=== PATIENT | female | born 1980 | race Caucasian/White ===

== ENCOUNTER 2018-07-06 13:11 | Emergency (ER) | payer OTHER ==
[2018-07-06 13:22] VITALS: BMI 32.7
[2018-07-06] MEDS ORDERED: ONDANSETRON *ODT* 4 MG TABLET SL ONE (14:05)
[2018-07-06] MEDS ORDERED: ONDANSETRON *ODT* 4 MG TABLET ONE (14:24)
--- NOTE | 2018-07-06 14:26 | PDOC ---
History of Present Illness - General Chief Complaint: Nausea/Vomiting Stated Complaint: NAUSEA Time Seen by Provider: 07/06/18 14:05 History Source: Patient Exam Limitations: No Limitations - History of Present Illness Travel History: No Initial Comments: 07/06/18 15:36 38 yr female history of hypothyroid c/o nausea vomiting for 3 days no abd pain no fever no diarrhea. Pt denies foreign travel or sick contacts. LMP 1 week ago , no chest pain no shortness of breath. 07/06/18 18:20 Past History - Past Medical History Allergies/Adverse Reactions: Allergies Allergy/AdvReac Type Severity Reaction Status Date / Time No Known Allergies Allergy Verified 07/06/18 13:19 Home Medications: Ambulatory Orders Albuterol 0.083% Nebulizer Alice [Ventolin 0.083% Nebulizer Soln -] 1 neb NEB Q4H PRN #1 vial 07/30/16 Albuterol Sulfate [Proair Respiclick] 90 mcg IH BID 07/30/16 Levothyroxine [Synthroid -] 112 mcg PO DAILY 07/30/16 Montelukast Na [Singulair -] 10 mg PO HS 07/30/16 Nitrofurantoin Monohyd/M-Cryst [Macrobid -] 100 mg PO BID #14 capsule 07/06/18 Ondansetron [Zofran Odt -] 4 mg SL TID PRN #21 od.tablet 07/06/18 Asthma: Yes COPD: No Thyroid Disease: Yes (HYPO) - Immunization History Immunization Up to Date: Yes - Suicide/Smoking/Psychosocial Hx Smoking History: Never smoked Number of Cigarettes Smoked Daily: 0 Hx Alcohol Use: No Drug/Substance Use Hx: No Abd/GI Specific PMHX - Complaint Specific PMHX Colitis: No Diverticulitis: No Gall Bladder Disease: No GERD: No Hepatitis: No Irritable Bowel Synd (IBS): No Pancreatitis: No GI Ulcer Disease: No Review of Systems - Review of Systems Able to Perform ROS?: Yes Is the patient limited Tajik proficient: No Constitutional: No: Symptoms Reported HEENTM: No: Symptoms Reported Respiratory: No: Symptoms reported Cardiac (ROS): No: Symptoms Reported ABD/GI: Yes: Symptoms Reported *Physical Exam - Vital Signs Last Vital Signs Temp Pulse Resp BP Pulse Ox 98.2 F 105 H 18 114/64 97 07/06/18 13:19 12/07/18 13:19 07/06/18 13:19 07/06/18 13:19 07/06/18 13:19 - Physical Exam General Appearance: Yes: Nourished, Appropriately Dressed HEENT: positive: EOMI, BENNETT, TMs Normal, Pharynx Normal Neck: positive: Supple. negative: Tender Respiratory/Chest: positive: Lungs Clear, Normal Breath Sounds. negative: Chest Tender Cardiovascular: positive: Regular Rhythm, Regular Rate, Tachycardia Gastrointestinal/Abdominal: positive: Normal Bowel Sounds, Soft. negative: Tender Musculoskeletal: positive: Normal Inspection Extremity: positive: Normal Capillary Refill, Normal Inspection, Normal Range of Motion Integumentary: positive: Normal Color, Dry, Warm, Pale Neurologic: positive: millwright helper II-XII NML intact, Fully Oriented, Alert, Normal Mood/ Affect, Normal Response, Motor Strength 5/5 Moderate Sedation - Procedure Monitoring Vital Signs: Procedure Monitoring Vital Signs Temperature 98.2 F 07/06/18 13:19 Pulse Rate 105 H 07/06/18 13:19 Respiratory Rate 18 07/06/18 13:19 Blood Pressure 114/64 07/06/18 13:19 O2 Sat by Pulse Oximetry (%) 97 07/06/18 13:19 ED Treatment Course - LABORATORY CBC & Chemistry Diagram: 07/06/18 15:40 07/06/18 17:04 Medical Decision Making - Medical Decision Making 07/06/18 15:39 cc: nausea and vomiting r/o r/o gastitis viral gastroenteritis labs, fluids re-assess 07/06/18 16:47 pt is feeling better after IVF, has no vomiting in ER will give ice chips for po challenge 07/06/18 17:48 *DC/Admit/Observation/Transfer Diagnosis at time of Disposition: Viral gastritis UTI (urinary tract infection) Qualifiers: Urinary tract infection type: acute cystitis Hematuria presence: without hematuria Qualified Code(s): N30.00 - Acute cystitis without hematuria - Discharge Dispostion Disposition: HOME Condition at time of disposition: Improved - Prescriptions Prescriptions: Nitrofurantoin Monohyd/M-Cryst [Macrobid -] 100 mg PO BID #14 capsule Ondansetron [Zofran Odt -] 4 mg SL TID PRN #21 od.tablet PRN Reason: Nausea And/Or Vomiting - Referrals Referrals: Calin Maradiaga MD [Staff Physician] - Dylon Rubi MD [Primary Care Provider] - - Patient Instructions Printed Discharge Instructions: DI for Urinary Tract Infection (UTI), DI for Nausea -- Adult, DI for Vomiting -- Adult Additional Instructions: take zofran as directed for nausea or vomiting sips of clear fluids , ice pops, jello, broth for the next 24hrs then slowly advance to dry crackers, dry toast plain white rice, noodle soup rest at home follow with on MONDAY call in the morning to make appointment return to ER for any worsening symptoms Macrobid for your uti - Post Discharge Activity
[2018-07-06] MEDS ORDERED: SODIUM CHLORIDE 1,000 ML IV STA ×2 (15:19→16:15)
[2018-07-06] MEDS ORDERED: METOCLOPRAMIDE HCL INJECTION 10 MG/2 ML VIAL IVPUSH ONE (15:38)
[2018-07-06 16:10] LABS: BASO % 0.6 % (0-2.0); EOS % 0.4 % (0-4.5); HEMATOCRIT 42.5 % (32.4-45.2); HEMOGLOBIN 14.7 GM/dL (10.7-15.3); LYMPH % 14.1 % (8-40); MCHC 34.5 g/dl (32.0-36.0); MEAN CELL VOLUME 86.8 fl (80-96); MEAN PLT VOLUME 9.6 fl (7.5-11.1); MONO % 5.4 % (3.8-10.2); NEUT % 79.5 % (42.8-82.8); PLATELET COUNT 348 K/MM3 (134-434); RDW 13.3 % (11.6-15.6); WHITE BLOOD COUNT 17.2 K/mm3 (4.0-10.0)
[2018-07-06] MEDS ORDERED: METOCLOPRAMIDE HCL INJECTION 10 MG/2 ML VIAL ONE (16:20)
[2018-07-06 18:20] LABS: ALBUMIN 2.6 g/dl (3.4-5.0); ALK PHOS 85 U/L (45-117); AMYLASE 33 U/L (25-115); ANION GAP 9 MMOL/L (8-16); BILIRUBIN,TOTAL 0.4 mg/dL (0.2-1); BLOOD UREA NITROGEN 12 mg/dL (7-18); CALCIUM 7.3 mg/dL (8.5-10.1); CHLORIDE 109 mmol/L (98-107); CO2 23 mmol/L (21-32); CREATININE 0.7 mg/dL (0.55-1.3); GLUCOSE,RANDOM 86 mg/dL (74-106); LIPASE 84 U/L (73-393); POTASSIUM 4.4 mmol/L (3.5-5.1); SGOT/AST 7 U/L (15-37); SGPT/ALT 11 U/L (13-61); SODIUM 142 mmol/L (136-145); TOT PROT 6.1 g/dl (6.4-8.2)
[2018-07-06 19:06] LABS: URINE APPEARANCE CLOUDY; URINE BILIRUBIN NEGATIVE (<2.0 mg/dL); URINE COLOR AMBER; URINE GLUCOSE (UA) NEGATIVE (NEGATIVE); URINE KETONE 2+ (NEGATIVE); URINE LEUK ESTERASE 1+ (NEGATIVE); URINE NITRITE NEGATIVE (NEGATIVE); URINE PROTEIN 2+ (NEGATIVE); URINE UROBILINOGEN 4.0 E.U/dl mg/dL (0.2-1.0)
[2018-07-06 19:08] LABS: HCG,QUALITATIVE URINE Negative
[2018-07-06 19:29] LABS: EPI CELLS MANY /HPF (FEW); URINE BACTERIA FEW /hpf (NONE SEEN); URINE MUCUS MANY
--- NOTE | 2018-07-06 20:39 | PDOC ---
*Physical Exam - Vital Signs Last Vital Signs Temp Pulse Resp BP Pulse Ox 98.2 F 105 H 18 114/64 97 07/06/18 13:19 07/06/18 13:19 07/06/18 13:19 07/06/18 13:19 07/06/18 13:19 - Physical Exam Comments: 07/06/18 20:37 CAT scan abdomen and pelvis with IV contrast: No definite CT findings of acute pathology are noted. Colonic diverticulosis is noted without evidence of acute diverticulitis. There is possible partial visualization of the appendix which demonstrates no discrete abnormality. No indirect CT findings of acute appendicitis are noted. There is no gastric distention. No gross noncontrast small bowel pathology is seen. ED Treatment Course - LABORATORY CBC & Chemistry Diagram: 07/06/18 15:40 07/06/18 17:04 - ADDITIONAL ORDERS Additional order review: Laboratory Results 07/06/18 07/06/18 07/06/18 18:29 17:04 15:40 Sodium 142 Potassium 4.4 Chloride 109 H Carbon Dioxide 23 Anion Gap 9 BUN 12 Creatinine 0.7 Creat Clearance w eGFR > 60 Random Glucose 86 Calcium 7.3 L Total Bilirubin 0.4 AST 7 L ALT 11 L Alkaline Phosphatase 85 Total Protein 6.1 L Albumin 2.6 L Total Amylase 33 Lipase 84 Beta HCG, Quant < 1.0 Urine Color Veronica Urine Appearance Cloudy Urine pH 5.0 Ur Specific Granite 1.023 Urine Protein 2+ H Urine Glucose (UA) Negative Urine Ketones 2+ H Urine Blood Negative Urine Nitrite Negative Urine Bilirubin Negative Urine Urobilinogen 4.0 e.u/dl H Ur Leukocyte Esterase 1+ H Urine WBC (Auto) 40 Urine RBC (Auto) None Ur Epithelial Cells Many Urine Bacteria Few Urine Mucus Many Urine HCG, Qual Negative 07/06/18 15:40 Sodium Cancelled Potassium Cancelled Chloride Cancelled Carbon Dioxide Cancelled Anion Gap Cancelled BUN Cancelled Creatinine Cancelled Creat Clearance w eGFR Cancelled Random Glucose Cancelled Calcium Cancelled Total Bilirubin Cancelled AST Cancelled ALT Cancelled Alkaline Phosphatase Cancelled Total Protein Cancelled Albumin Cancelled Total Amylase Cancelled Lipase Cancelled Beta HCG, Quant Urine Color Urine Appearance Urine pH Ur Specific Granite Urine Protein Urine Glucose (UA) Urine Ketones Urine Blood Urine Nitrite Urine Bilirubin Urine Urobilinogen Ur Leukocyte Esterase Urine WBC (Auto) Urine RBC (Auto) Ur Epithelial Cells Urine Bacteria Urine Mucus Urine HCG, Qual 07/06/18 15:40 RBC 4.90 MCV 86.8 MCHC 34.5 RDW 13.3 MPV 9.6 Neutrophils % 79.5 D Lymphocytes % 14.1 D Monocytes % 5.4 Eosinophils % 0.4 Basophils % 0.6 - RADIOLOGY Radiology Studies Ordered: Category Date Time Status ABDOMEN & PELVIS CT WITH CONTR [CT] Stat CT Scan 07/06/18 19:24 Completed - Medications Given in the ED: ED Medications Discontinued Medications Generic Name Dose Route Start Last Admin Trade Name Freq PRN Reason Stop Dose Admin Diphenhydramine HCl 12.5 mg 07/06/18 15:38 07/06/18 16:29 Benadryl Injection - IVPUSH 07/06/18 15:39 12.5 mg ONCE ONE Administration Sodium Chloride 1,000 mls @ 1,000 mls/hr 07/06/18 15:19 07/06/18 15:41 Normal Saline - IV 07/06/18 16:18 1,000 mls/hr ASDIR STA Administration Sodium Chloride 1,000 mls @ 1,000 mls/hr 07/06/18 16:15 07/06/18 16:42 Normal Saline - IV 07/06/18 17:14 1,000 mls/hr ASDIR STA Administration Metoclopramide HCl 10 mg 07/06/18 15:38 07/06/18 16:29 Reglan Injection - IVPUSH 07/06/18 15:39 10 mg ONCE ONE Administration Ondansetron HCl 4 mg 07/06/18 14:05 07/06/18 14:27 Zofran Odt - SL 07/06/18 14:06 4 mg ONCE ONE Administration Progress Note - Progress Note Progress Note: Due to patient's elevated white count, CAT scan of abdomen and pelvis was obtained and the impression was no definite CT findings of acute pathology. Patient states she feels better and wishes to be discharged. Patient is strongly advised to follow-up with her PMD. *DC/Admit/Observation/Transfer Diagnosis at time of Disposition: Viral gastritis, Diverticulosis of colon, UTI (urinary tract infection) - Discharge Dispostion Disposition: HOME Condition at time of disposition: Improved - Prescriptions Prescriptions: Ondansetron [Zofran Odt -] 4 mg SL TID PRN #21 od.tablet PRN Reason: Nausea And/Or Vomiting - Referrals Referrals: Dylon Rubi MD [Primary Care Provider] - Calin Maradiaga MD [Staff Physician] - - Patient Instructions Printed Discharge Instructions: DI for Urinary Tract Infection (UTI), DI for Nausea -- Adult, DI for Vomiting -- Adult Additional Instructions: take zofran as directed for nausea or vomiting sips of clear fluids , ice pops, jello, broth for the next 24hrs then slowly advance to dry crackers, dry toast plain white rice, noodle soup rest at home follow with on MONDAY call in the morning to make appointment return to ER for any worsening symptoms Macrobid for your uti - Post Discharge Activity
[2018-07-06 21:33] VITALS: BP 123/72; PULSE 80; TEMP 98.1
== END 2018-07-06 20:15 | disposition home or self-care (01) ==
LOC: JER 13:11
PROC: 3E033GC Introduction of Other Therapeutic Substance into Peripheral Vein, Percutaneous Approach (ICD-10-PCS; principal; 2018-07-06)
PROC: 3E0337Z Introduction of Electrolytic and Water Balance Substance into Peripheral Vein, Percutaneous Approach (ICD-10-PCS; 2018-07-06)
DX: A08.4 Viral intestinal infection, unspecified (principal); E03.9 Hypothyroidism, unspecified; J45.909 Unspecified asthma, uncomplicated
CPT/HCPCS: 36415; 74177-TC; 80053; 81003; 81015; 82150; 83690; 84702; 84703; 85025; 87077; 87086; 99283-25; J7030; Q0162

== ENCOUNTER 2018-09-05 12:58 | Emergency (ER) | payer OTHER ==
[2018-09-05 13:12] VITALS: BP 118/80; PULSE 84; TEMP 98.1; BMI 32.5
--- NOTE | 2018-09-05 13:36 | PDOC ---
History of Present Illness - General Chief Complaint: Cold Symptoms Stated Complaint: flu sx Time Seen by Provider: 09/05/18 13:28 History Source: Patient Exam Limitations: No Limitations - History of Present Illness Initial Comments: 09/05/18 14:40 Ms Garza is an 38 yo F who presents to the ER with a complaint of nausea. She was having fevers two days ago She contacted her PMD who started Tamiflu which she took last night and this morning After taking medication this morning, she began vomiting No abdominal pain No diarrhea No cough, no sputum Subjective fevers and chills Sick contact = her children PMH: Hypothyroidism PSH: C section x 2 Med: Synthroid ALL: NKDA Social: denies alcohol, drugs, cigarette use ROS GENERAL/CONSTITUTIONAL: subjective fever, chills, weakness, loss of appetite. HEAD, EYES, EARS, NOSE AND THROAT: No: change in vision, ear pain, discharge, sore throat, throat swelling. CARDIOVASCULAR: No: chest pain, lightheadedness, palpitations, syncope RESPIRATORY: No: cough, shortness of breath, wheezing, GASTROINTESTINAL: Yes: nausea, vomiting, No: abdominal pain, diarrhea GENITOURINARY: No: dysuria, hematuria, frequency, urgency, flank pain. MUSCULOSKELETAL: No: back pain, neck pain, joint pain, muscle swelling or pain SKIN AND BREASTS: No: lesions, pallor, rash or easy bruising. NEUROLOGIC: No: headache, vertigo, paresthesias, weakness Physical Exam GENERAL: The patient is in no acute distress. HEAD: Normal EYES: PERRLA, EOMI, sclera anicteric, conjunctiva clear. ENT: Ears normal, nares patent, oropharynx clear without exudates. Moist mucous membranes. NECK: Normal range of motion, supple LUNGS: Breath sounds equal, clear to auscultation bilaterally. No wheezes, and no crackles. HEART:Regular rate and rhythm, normal S1 and S2 without murmur, rub or gallop. ABDOMEN: Soft, nontender, normoactive bowel sounds. EXTREMITIES: Normal range of motion, no edema. NEUROLOGICAL: Cranial nerves II through XII grossly intact. Normal speech. No focal neurological deficits. MUSCULOSKELETAL: no CVA tenderness SKIN: Warm, Dry, normal turgor, no rashes or lesions noted. 09/06/18 10:28 Past History - Past Medical History Allergies/Adverse Reactions: Allergies Allergy/AdvReac Type Severity Reaction Status Date / Time No Known Allergies Allergy Verified 09/05/18 12:59 Home Medications: Ambulatory Orders Levothyroxine [Synthroid -] 100 mcg PO DAILY 07/30/16 Acetaminophen [Tylenol] 650 mg PO PRN PRN 09/05/18 Ondansetron HCl [Zofran] 4 mg PO BID PRN #20 tablet 09/05/18 Oseltamivir Phosphate [Tamiflu] 75 mg PO DAILY 09/05/18 Asthma: Yes COPD: No Thyroid Disease: Yes (HYPO) - Immunization History Immunization Up to Date: Yes - Suicide/Smoking/Psychosocial Hx Smoking History: Never smoked Have you smoked in the past 12 months: No Number of Cigarettes Smoked Daily: 0 Information on smoking cessation initiated: No Hx Alcohol Use: No Drug/Substance Use Hx: No *Physical Exam - Vital Signs Last Vital Signs Temp Pulse Resp BP Pulse Ox 98.1 F 84 20 118/80 98 09/05/18 12:58 09/05/18 12:58 09/05/18 12:58 09/05/18 12:58 09/05/18 12:58 Moderate Sedation - Procedure Monitoring Vital Signs: Procedure Monitoring Vital Signs Temperature 98.1 F 09/05/18 12:58 Pulse Rate 84 09/05/18 12:58 Respiratory Rate 20 09/05/18 12:58 Blood Pressure 118/80 09/05/18 12:58 O2 Sat by Pulse Oximetry (%) 98 09/05/18 12:58 Medical Decision Making - Medical Decision Making 09/05/18 14:49 Pt given Zofran with improvement in symptoms Pt po challenged Pt states she feels better Symptoms likely due to Tamiflu Will: discharge on zofran Continue tamiflu Stay hydrated Rest Return to the ER for any other concern or complaints 09/06/18 10:29 *DC/Admit/Observation/Transfer Diagnosis at time of Disposition: Influenza-like illness, Viral gastritis - Discharge Dispostion Disposition: HOME Condition at time of disposition: Stable Decision to Admit order: No - Prescriptions Prescriptions: Ondansetron HCl [Zofran] 4 mg PO BID PRN #20 tablet PRN Reason: Nausea - Referrals - Patient Instructions Printed Discharge Instructions: DI for Viral Upper Respiratory Infection -- Adult, DI for Nausea -- Adult Additional Instructions: Thank you for coming to the ER I am sorry that you are feeling so ill I have sent a medication to the pharmacy for you , to help with the nausea Monitor yourself for fevers Stay very hydrated Return to the ER for any other concerns or complaints - Post Discharge Activity Forms/Work/School Notes: Back to Work
[2018-09-05] MEDS ORDERED: ONDANSETRON 4 MG TABLET PO ONE (13:50)
[2018-09-05] MEDS ORDERED: ONDANSETRON *ODT* 4 MG TABLET ONE (14:02)
== END 2018-09-05 15:19 | disposition home or self-care (01) ==
LOC: FER 12:58
DX: J11.2 Influenza due to unidentified influenza virus with gastrointestinal manifestations (principal); E03.9 Hypothyroidism, unspecified
CPT/HCPCS: 99281-25